=== PATIENT | male | born 1965 | race Caucasian/White ===

== ENCOUNTER 2020-07-29 10:56 | Inpatient (IN) | payer MEDICAID, SELFPAY ==
[~2020-07-29] VITALS: Ht 172.7 cm; Wt 77.1 kg
[2020-07-29 11:01] VITALS: BP 180/112
--- NOTE | 2020-07-29 11:14 | NUR ---
55YO M BIBA FROM HOME C/O SOB UPON EXERTION X 4 DAYS. DENIES FEVER AND COUGH. ENTIRE HOUSEHOLD COVID +. PT TESTED NEGATIVE FOR COVID 3 MONTHS AGO, NO TEST DONE AFTER. PER [facility], PT DESATURATING @ 88% ON RA EN ROUTE TO ED. PT GIVEN BREATHING TREATMENT AND PLACED ON 02 4L VIA NC, SATURATED @ 96%. IN ED, PT A0X4. PT TACHYCARDIC @ 112, TACHYPNEIC @ 24, 02 SAT 97% ON 4L 02 NC. PT WITH COARSE BREATH SOUNDS ON ALL LUNG SALMON. PT SITTING UPRIGHT ON BED. ERMD MADE AWARE OF PT STATUS. PMH: ASTHMA NKA
--- NOTE | 2020-07-29 12:02 | NUR ---
Daughter Lia [phone] Angélica [phone]
[2020-07-29 12:23] LABS: BASOPHILS % (AUTO) 0.4 % (0.0-2.0); EOSINOPHILS % (AUTO) 0.1 % (0.0-4.0); HEMATOCRIT 44.1 % (36-52); HEMOGLOBIN 15.3 g/dL (12.0-18.0); LYMPHOCYTES # (AUTO) 0.8 K/uL (2.0-11.5); LYMPHOCYTES % (AUTO) 10.3 % (20.5-51.1); MEAN CORPUSCULAR HEMOGLOBIN 32 pg (27-31); MEAN CORPUSCULAR HGB CONC 35 g/dL (33-37); MEAN CORPUSCULAR VOLUME 91.9 fL (80-94); MONOCYTES # (AUTO) 0.8 K/uL (0.8-1.0); MONOCYTES % (AUTO) 10.3 % (1.7-9.3); NEUTROPHILS % (AUTO) 78.9 % (42.2-75.2); PLATELET COUNT (AUTO) 369 K/uL (140-450); RED CELL DISTRIBUTION WIDTH 13.7 % (11.6-13.7); WHITE BLOOD COUNT (AUTO) 7.6 K/uL (4.8-10.8)
[2020-07-29 12:30] LABS: ANION GAP 14.6 (8-16); CARBON DIOXIDE 26.4 mmol/L (21-32); CREATININE 0.8 mg/dL (0.6-1.3)
--- NOTE | 2020-07-29 13:14 | NUR ---
TATIANNA SWAB DONE. WALKED TO LAB.
[2020-07-29 13:41] LABS: ALBUMIN 2.8 g/dL (3.4-5.0); BILIRUBIN,DIRECT 0.3 mg/dL (0.0-0.3); TOTAL BILIRUBIN 0.8 mg/dL (0.0-1.0)
[2020-07-29] MEDS ORDERED: DEXAMETHASONE 4 MG/ML VIAL IVP ONE (15:55)
[2020-07-29] MEDS ORDERED: HYDROcodone/APAP 7.5/325 MG 1 TAB PO PRN (16:35)
[2020-07-29] MEDS ORDERED: ZOLPIDEM 5 MG TAB PO PRN (16:35)
[2020-07-29] MEDS: NACL 0.9% 1,000 ML IV SCH (16:35)
[2020-07-29] MEDS ORDERED: guaiFENesin DM 200/20 MG-10 ML 10 ML UDC PO PRN (16:35)
[2020-07-29] MEDS ORDERED: ACETAMINOPHEN 325 MG TAB PO PRN (16:35)
[2020-07-29] MEDS ORDERED: ONDANSETRON 4 MG/2 ML VIAL IM/IVP PRN (16:35)
[2020-07-29] MEDS ORDERED: DOCUSATE SODIUM 100 MG GELCAP PO PRN (16:35)
[2020-07-29] MEDS ORDERED: ALBUTEROL HFA MDI 90 MCG/ACTUATION 8 GM INH PRN (16:55)
[2020-07-29 17:21] LABS: PROTHROMBIN TIME 10.4 secs (10.8-13.4)
[2020-07-29] MEDS ORDERED: cefTRIAXone 1,000 MG VIAL ONE (17:33)
[2020-07-29 17:37] LABS: CHOL/HDL RATIO 8.8 (1-4.5); FREE T4 (FREE THYROXINE) 1.39 ng/dL (0.76-1.46); MAGNESIUM 2.4 mg/dL (1.8-2.4); PHOSPHORUS 3.2 mg/dL (2.5-4.9); THYROID STIMULATING HORMONE 2.15 uIU/mL (0.34-3.74)
--- NOTE | 2020-07-29 18:12 | NUR ---
MRSA SWAB DONE. GIVEN TO CALIN FROM LAB.
--- NOTE | 2020-07-29 19:30 | NUR ---
RECEIVED REPORT FROM SHANNA ESPARZA FOR CONTINUITY OF CARE.
--- NOTE | 2020-07-29 19:37 | NUR ---
REPORT GIVEN TO ISAIAS JUAREZ. ALL CARES TRANSFERRED AT THIS TIME.
--- NOTE | 2020-07-29 20:00 | NUR ---
PT LAYING IN NO ACUTE DISTRESS NOTED. IVF RUNNING AT THIS TIME AT 60 ML/HR. PT IS ON 4L OF OXYGEN VIA NC O2 SAT AT 96%. NOTED WITH 18G IV SITE ON LAC. ON CARDIAC MONITORING, PULSE OXIMETRY AND BP MONITORING.
--- NOTE | 2020-07-29 20:20 | NUR ---
Patient will be admitted to care of DR. LOPEZ. Admited to TELEMETRY. Will go to room 111A. Belongings list completed. Report to GIVEN TO DIAZ RN.
[2020-07-29 20:54] LABS: APPEARANCE,URINE CLEAR (CLEAR); BILIRUBIN,URINE 2+ (NEGATIVE); BLOOD, URINE NEGATIVE (NEGATIVE); COLOR,URINE YELLOW (YELLOW); LEUKOCYTE ESTERASE ,URINE NEGATIVE (NEGATIVE); NITRITE, URINE NEGATIVE (NEGATIVE); UGLUCOSE NEGATIVE (NEGATIVE)
[2020-07-29 21:08] LABS: BARBITURATE, URINE NEGATIVE ng/ml (NEG <=200); BENZODIAZEPINE, URINE NEGATIVE ng/mL (NEG <=200); CANNABINOID, URINE NEGATIVE ng/mL (NEG <=50); COCAINE, URINE NEGATIVE ng/mL (NEG <=300); OPIATE, URINE NEGATIVE ng/mL (NEG <=2000); PHENCYCLIDINE SCREEN,URINE NEGATIVE ng/mL (NEG <=25)
[2020-07-29] MEDS: POTASSIUM CHLORIDE 10 MEQ TABER PO PRN (21:14)
[2020-07-29 21:30] VITALS: BP 146/97
--- NOTE | 2020-07-29 21:40 | NUR ---
ADMITTED 55Y.O.M FROM ER.PLACED ON BED.ORIENTED TO ROOM.CALL SYSTEM EXPLAINED AND IN REACH.LUNGS DIMINISHED.RESP.UNLABORED W/O2 AT 5L/NC.TELE APPLIED AND SHOWING SR.IVF OF NS INFUSING WELL VIA IV LINE IN LT AC W/#18 G W/O REDNESS OR EDEMA AT SITE.CARE PLAN DISCUSSED W/PT.HE VERBALIZED UNDERSTANDING.DENIED ANY PAIN OR DISCOMFORT AT TIME OF ADMISSION.WILL CONTINUE MONITORING.
[2020-07-30] VITALS: BP 149/98
--- NOTE | 2020-07-30 01:42 | NUR ---
1ST DOSE OH HEPARIN SUB.Q GIVEN.K=3.0,K-DUR 40 MEQ PO GIVEN.NO DISTRESS NOTED NOW.HR IS SR.
[2020-07-30] MEDS ORDERED: FLU VACCINE QS2020-21 0.5 ML SYR IMVAC PRN (02:45)
[2020-07-30 04:00] VITALS: BP 158/108
--- NOTE | 2020-07-30 05:00 | NUR ---
EQ=301/108.SENT MESSAGE FOR .SHE ANSWERED SHE WILL TELL TO ORDER SOMETHING FOR PT.RESP.UNLABORED W/O2.NO C/O PAIN OR DISCOMFORT.
[2020-07-30] MEDS: NACL 0.9% 1,000 ML IV SCH (06:30)
--- NOTE | 2020-07-30 06:55 | NUR ---
SLEPT WELL.NO DISTRESS NOTED.IVF INFUSING BY GRAVITY WELL
[2020-07-30 07:04] LABS: BASOPHILS % (AUTO) 0.3 % (0.0-2.0); EOSINOPHILS % (AUTO) 0.1 % (0.0-4.0); HEMATOCRIT 42.6 % (36-52); HEMOGLOBIN 14.5 g/dL (12.0-18.0); LYMPHOCYTES # (AUTO) 0.7 K/uL (2.0-11.5); MEAN CORPUSCULAR HEMOGLOBIN 32 pg (27-31); MEAN CORPUSCULAR HGB CONC 34 g/dL (33-37); MEAN CORPUSCULAR VOLUME 93.5 fL (80-94); MONOCYTES # (AUTO) 0.5 K/uL (0.8-1.0); MONOCYTES % (AUTO) 9.7 % (1.7-9.3); NEUTROPHILS # (AUTO) 3.9 K/uL (1.8-7.7); NEUTROPHILS % (AUTO) 75.9 % (42.2-75.2); PLATELET COUNT (AUTO) 369 K/uL (140-450); RED BLOOD CELL COUNT(AUTO) 4.55 MIL/uL (4.20-6.10); RED CELL DISTRIBUTION WIDTH 13.6 % (11.6-13.7); WHITE BLOOD COUNT (AUTO) 5.2 K/uL (4.8-10.8)
--- NOTE | 2020-07-30 07:30 | NUR ---
RECEIVED PT AWAKE, NO SOB NOTED. NO C/O PAIN AT THIS TIME. WILL CONTINUE TO MONITOR.
[2020-07-30 07:38] LABS: ANION GAP 13.9 (8-16); CREATININE 0.7 mg/dL (0.6-1.3); POTASSIUM 3.9 mmol/L (3.5-5.1)
[2020-07-30 08:00] VITALS: BP 139/112
[2020-07-30] MEDS ORDERED: remdesivir COMMUNICATION ORDER 1 EA MISC MC PRN (08:30)
[2020-07-30] MEDS: AZITHROMYCIN 250 MG TAB PO SCH (08:43)
[2020-07-30] MEDS: ASCORBIC ACID 500 MG TAB PO SCH (08:43)
[2020-07-30] MEDS: ZINC SULF 220 MG CAP PO SCH (08:44)
[2020-07-30] MEDS: PANTOPRAZOLE 40 MG TABEC PO SCH (08:44)
[2020-07-30] MEDS: lisinopriL 10 MG TAB PO SCH (08:50)
--- NOTE | 2020-07-30 08:50 | NUR ---
PATIENT HAS BEEN SCREENED AND CATEGORIZED MODERATE NUTRITION RISK. PATIENT WILL BE SEEN WITHIN 3-5 DAYS OF ADMISSION. 08/01/20 08/03/[address]
[2020-07-30] MEDS ORDERED: remdesivir CLINICAL MONITORING 1 EA MISC MC PRN (09:40)
[2020-07-30] MEDS ORDERED: REMDESIVIR (EUA) 200 MG in NACL 0.9% 100 ML IV SCH (12:00)
--- NOTE | 2020-07-30 12:59 | NUR ---
SOCIAL WORK NOTE: ERLINDA WAS UNABLE TO MEET PATIENT AT BEDSIDE. ERLINDA CONTACTED RN TO REQUEST ADDITIONAL CONTACT INFORMATION FOR EMERGENCY CONTACTS. ERLINDA WILL FOLLOW UP. Addendum: 07/30/20 at 1314 by Tiago Cardona SS ERLINDA WAS GIVEN PHONE NUMBER TO [facility] [phone]. ERLINDA LEFT . ERLINDA WILL FOLLOW UP TO COMPLETE ASSESSMENT.
[2020-07-30 13:00] VITALS: BP 157/100
--- NOTE | 2020-07-30 13:05 | NUR ---
PT RESTING. NO SIB NOTED. NO COMPLAINTS MADE. ENDORSED CARE TO JOVANI-RN IN STABLE CONDITION.
--- NOTE | 2020-07-30 13:05 | NUR ---
RECEIVED REPORT FROM NURSE FOR CONTINUITY OF CARE, PT HAS LAC 22G INFUSING NS AT 60 ML/H, PT ON 4L NC. WILL CONTINUE TO MONITOR.
--- NOTE | 2020-07-30 15:00 | NUR ---
ROUNDING ON PT, PT IS STABLE, WILL CONTINUE TO MONITOR.
[2020-07-30 16:00] VITALS: BP 157/102
--- NOTE | 2020-07-30 17:41 | NUR ---
ADMINISTERED SCHEDULED MEDICATION, MEDICATION EDUCATION PROVIDED. PT TOLERATED WELL. PT IS STABLE, WILL CONTINUE TO MONITOR.
--- NOTE | 2020-07-30 19:20 | NUR ---
RECEIVED BEDSIDE REPORT FROM DAY SHIFT NURSE. PATIENT IS AWAKE, ALERT, AND ORIENTED. RESPIRATIONS IS EVEN AND UNLABORED. PATIENT IS ON 4 L NC. SKIN IS INTACT, WARM, AND DRY. IV LAC 18 G PATENT AND INTACT. PLAN OF CARE WAS DISCUSSED. SAFETY PROTOCOLS IN PLACE. BED IS IN LOW POSITION AND CALL LIGHTS WITHIN REACH. WILL CONTINUE TO MONITOR.
--- NOTE | 2020-07-30 19:25 | NUR ---
ENDORSE PT TO NIGHT NURSE FOR CONTINUITY OF CARE, PT IS STABLE
[2020-07-30 20:00] VITALS: BP 157/98
--- NOTE | 2020-07-30 20:16 | NUR ---
ALL SCHEDULED MEDS GIVEN. PT IS STABLE. NO SIGNS OF DISTRESS NOTED. WILL CONTINUE TO MONITOR.
--- NOTE | 2020-07-30 23:59 | NUR ---
CHECK ON PATIENT. PATIENT IS STABLE. RESPIRATION EVEN AND UNLABORED. ON 4L NC SATING AT 96%. NO DISTRESS NOTED WILL CONTINUE TO MONITOR.
[2020-07-31] VITALS: BP 159/95
--- NOTE | 2020-07-31 01:00 | NUR ---
CHECK ON PATIENT. PATIENT IS ASLEEP. RESPIRATIONS EVEN AND UNLABORED. NO DISTRESS NOTED. WILL CONTINUE TO MONITOR.
[2020-07-31] MEDS: NACL 0.9% 1,000 ML IV SCH ×2 (01:55→17:12)
--- NOTE | 2020-07-31 03:00 | NUR ---
CHECK ON PATIENT. PATIENT IS STABLE. NO DISTRESS NOTED. WILL CONTINUE TO MONITOR
[2020-07-31 04:00] VITALS: BP 156/100
--- NOTE | 2020-07-31 05:07 | NUR ---
CHECK ON PATIENT. PATIENT IS ASLEEP. RESPIRATIONS EVEN AND UNLABORED. ON 4L NC. NO DISTRESS NOTED. WILL CONTINUE TO MONITOR.
--- NOTE | 2020-07-31 07:34 | NUR ---
ENDORSE PT TO DAY SHIFT NURSE FOR CONTINUITY OF CARE. PT IS STABLE
[2020-07-31 08:00] VITALS: BP 147/93
[2020-07-31] MEDS: lisinopriL 10 MG TAB PO SCH (08:08)
[2020-07-31] MEDS: PANTOPRAZOLE 40 MG TABEC PO SCH (08:08)
[2020-07-31] MEDS: ZINC SULF 220 MG CAP PO SCH (08:08)
[2020-07-31] MEDS: ASCORBIC ACID 500 MG TAB PO SCH (08:08)
[2020-07-31] MEDS: AZITHROMYCIN 250 MG TAB PO SCH (08:08)
[2020-07-31 08:14] LABS: T4 (THYROXINE) 8.6 ug/dL (4.5-12.0)
--- NOTE | 2020-07-31 08:15 | NUR ---
ALL SCHEDULED MEDS WERE GIVEN PER ORDER. NO ASE NOTED. WILL CONTINUE TO MONITOR
--- NOTE | 2020-07-31 08:20 | NUR ---
PROVIDED PATIENT BREAKFAST
[2020-07-31 09:33] LABS: BASOPHILS # (AUTO) 0.1 K/uL (0.00-0.22); EOSINOPHILS % (AUTO) 0.1 % (0.0-4.0); HEMOGLOBIN 13.6 g/dL (12.0-18.0); LYMPHOCYTES # (AUTO) 1.5 K/uL (2.0-11.5); NEUTROPHILS % (AUTO) 74.9 % (42.2-75.2)
[2020-07-31 09:48] LABS: BASOPHILS % (AUTO) 0.7 % (0.0-2.0); HEMATOCRIT 40.2 % (36-52); LYMPHOCYTES % (AUTO) 14.4 % (20.5-51.1); MEAN CORPUSCULAR HEMOGLOBIN 32 pg (27-31); MEAN CORPUSCULAR HGB CONC 34 g/dL (33-37); MONOCYTES % (AUTO) 9.9 % (1.7-9.3); NEUTROPHILS # (AUTO) 7.6 K/uL (1.8-7.7); PLATELET COUNT (AUTO) 381 K/uL (140-450); RED BLOOD CELL COUNT(AUTO) 4.27 MIL/uL (4.20-6.10); RED CELL DISTRIBUTION WIDTH 13.6 % (11.6-13.7); WHITE BLOOD COUNT (AUTO) 10.2 K/uL (4.8-10.8)
--- NOTE | 2020-07-31 10:42 | NUR ---
CHECKED ON PATIENT. PATIENT LAYING BED AWAKE. RESPIRATION EVEN UNLABORED ON 4L NC O2. NO DISTRESS NOTED. WILL CONTINUE TO MONITOR.
--- NOTE | 2020-07-31 10:55 | NUR ---
ENDORSED PATIENT TO LUCIAN FOR CONTINUITY OF CARE.
[2020-07-31 12:00] VITALS: BP 135/93
--- NOTE | 2020-07-31 12:00 | NUR ---
RECEIVED REPORT FROM ISAIAS GONSALES FOR CONTINUITY OF CARE.
[2020-07-31] MEDS: REMDESIVIR (EUA) 100 MG in NACL 0.9% 100 ML IV SCH (12:37)
--- NOTE | 2020-07-31 13:01 | NUR ---
RECEIVED REPORT FROM LUCIAN FOR CONTINUITY OF CARE. PATIENT RESTING IN BED IN SITTING POSITION. RESPIRATORY EVEN AND UNLABORED WITH 2L OXYGEN VIA NC. DENIES PAIN OR DISCOMFORT. NO ACUTE DISTRESS NOTED. SAFETY MEASURES IN PLACE, CALL LIGHT WITHIN REACH. WILL CONTINUE TO MONITOR.
--- NOTE | 2020-07-31 14:50 | NUR ---
PATIENT RESTING IN BED, WITH NO ACUTE DISTRESS NOTED. PATIENT TOLERATED THE 2L OXYGEN VIA NC WELL. SAFETY MEASURES IN PLACE, WILL CONTINUE TO MONITOR.
--- NOTE | 2020-07-31 15:20 | NUR ---
INFORMED DR. ALVAREZ THAT PATIENT'S BP LEVEL 170/103. NEW ORDER OBTAINED. WILL FOLLOW AND CARRY OUT.
[2020-07-31] MEDS: METOPROLOL 25 MG TAB PO SCH ×2 (15:41→20:26)
--- NOTE | 2020-07-31 15:41 | NUR ---
METOPROLOL GIVEN FOR BP 730/103, HR 80. EDUCATION PROVIDED. VERBALIZED UNDERSTANDING. SN CHANGED THE IV SITE DRESSING COVERED WITH TEGADERM. SECURE WITH TAPE. IV SITE DRY, NO S/S OF INFECTION NOTED. PATIENT'S FAMILY MEMBERS CAME TO CHECK ON HIM FROM OUTSIDE SEE THROUGH WINDOW. UPDATED PATIENT'S CONDITION, POSSIBLE DISCHARGE TOMORROW.
[2020-07-31] MEDS ORDERED: hydrALAZINE 10 MG TAB PO ONE (18:00)
--- NOTE | 2020-07-31 18:20 | NUR ---
ONE DOSE HYDRALAZINE 5MG GIVEN FOR BP LEVEL 170/100. EDUCATION PROVIDED REGARDING THE MEDICATION, INDICATION/SIDE EFFECT. PATIENT VERBALIZED UNDERSTANDING. SAFETY MEASURES IN PLACE. PATIENT STILL IN ROOM AIR, DENIES SOB OR TROUBLE BREATHING. WILL CONTINUE TO MONITOR.
--- NOTE | 2020-07-31 19:32 | NUR ---
ENDORSED PATIENT TO ACCORDION REPAIRER RN FOR CONTINUITY OF CARE. PATIENT IN STABLE CONDITION. NO SOB ON ROOM AIR. O2 SAT 92-95%.
--- NOTE | 2020-07-31 19:33 | NUR ---
RECEIVED REPORT FROM DAY SHIFT NURSE. PT IN BED RESTING. PT AAOX4, AMBULATORY, ABLE TO MAKE NEEDS KNOWN. RESPIRATIONS ARE EVEN AND UNLABORED TO ROOM AIR. PT NOT IN DISTRESS. DROPLET PRECAUTIONS OBSERVED. ABDOMEN IS SOFT AND NON-TENDER, ACTIVE BOWEL SOUNDS NOTED. SKIN IS WARM, DRY, AND INTACT. PT WITH IV ACCESS ON LEFT HAND G22 PATENT AND INTACT, IVF INFUSING WELL. PT DENIES ANY PAIN OR DISCOMFORT AT THIS TIME. NO REQUESTS MADE. PT KEPT COMFORTABLE. SAFETY MEASURES IN PLACE. CALL LIGHT WITHIN REACH. WILL CONTINUE TO MONITOR.
[2020-07-31 20:00] VITALS: BP 171/80
--- NOTE | 2020-07-31 20:27 | NUR ---
VS TAKEN. BP 171/80. SCHEDULED ANTI HYPERTENSIVE MEDICATION GIVEN. PT NOT IN DISTRESS. DENIES ANY PAIN OR DISCOMFORT. NO REQUESTS MADE. PT KEPT COMFORTABLE. CALL LIGHT WITHIN REACH. WILL CONTINUE TO MONITOR.
--- NOTE | 2020-07-31 22:04 | NUR ---
ROUNDS MADE. PT ASLEEP. PT NOT IN DISTRESS. VISIBLE CHEST RISE AND FALL NOTED. NO S/SX OF PAIN OR DISCOMFORT NOTED. PT KEPT COMFORTABLE. SAFETY MEASURES IN PLACE. CALL LIGHT WITHIN REACH. WILL CONTINUE TO MONITOR.
--- NOTE | 2020-08-01 00:21 | NUR ---
BP 171/100 HR 73. PT DENIES ANY DISCOMFORT OR DISTRESS. MD MADE AWARE. RECEIVED ORDER OF HYDRALAZINE 10MG IVP ONCE. AWAITING MEDICATION VERIFICATION. WILL CONTINUE TO MONITOR.
[2020-08-01] MEDS ORDERED: hydrALAZINE 20 MG/ML VIAL IVP PRN (00:40)
--- NOTE | 2020-08-01 01:56 | NUR ---
VS REASSESSMENT: BP 160/90 HR 95 RR 18 TEMP 97.3 O2 SAT 94%. WILL CONTINUE TO MONITOR.
[2020-08-01 04:00] VITALS: BP 151/93
--- NOTE | 2020-08-01 04:15 | NUR ---
VS STABLE. PT NOT IN DISTRESS. DENIES ANY PAIN OR DISCOMFORT. NO REQUESTS MADE. PT KEPT COMFORTABLE. SAFETY MEASURES IN PLACE. CALL LIGHT WITHIN REACH. WILL CONTINUE TO MONITOR.
[2020-08-01 07:10] LABS: ANION GAP 13.8 (8-16); CARBON DIOXIDE 22.6 mmol/L (21-32); CREATININE 0.8 mg/dL (0.6-1.3); POTASSIUM 4.4 mmol/L (3.5-5.1)
--- NOTE | 2020-08-01 07:25 | NUR ---
ENDORSED TO DAY SHIFT NURSE FOR CONTINUITY OF CARE
--- NOTE | 2020-08-01 07:45 | NUR ---
LAB CALLED FOR CRITICAL GLUCOSE 46 YESTERDAY RESULT AT 1730. NO ACTION AT THIS TIME DUE TO RESULTS BEING YESTERDAY. WILL CONTINUE TO MONITOR.
[2020-08-01 08:00] VITALS: BP 156/95
[2020-08-01] MEDS ORDERED: ZINC220C28 PO (09:24)
[2020-08-01] MEDS ORDERED: METO25TA PO (09:24)
[2020-08-01] MEDS ORDERED: DEXA6TAB1 PO (09:24)
[2020-08-01] MEDS ORDERED: LISI10TA11 PO (09:24)
[2020-08-01] MEDS ORDERED: ASPI-1884 PO (09:24)
[2020-08-01] MEDS ORDERED: AZIT250T11 PO (09:24)
[2020-08-01] MEDS ORDERED: VITC500 PO (09:24)
[2020-08-01 09:35] LABS: BASOPHILS # (AUTO) 0.1 K/uL (0.00-0.22); BASOPHILS % (AUTO) 0.5 % (0.0-2.0); EOSINOPHILS % (AUTO) 0.2 % (0.0-4.0); HEMOGLOBIN 14.2 g/dL (12.0-18.0); LYMPHOCYTES # (AUTO) 2.2 K/uL (2.0-11.5); LYMPHOCYTES % (AUTO) 16.7 % (20.5-51.1); MEAN CORPUSCULAR HEMOGLOBIN 32 pg (27-31); MEAN CORPUSCULAR HGB CONC 34 g/dL (33-37); MEAN CORPUSCULAR VOLUME 93.5 fL (80-94); MONOCYTES # (AUTO) 1.2 K/uL (0.8-1.0); MONOCYTES % (AUTO) 9.3 % (1.7-9.3); NEUTROPHILS # (AUTO) 9.8 K/uL (1.8-7.7); NEUTROPHILS % (AUTO) 73.3 % (42.2-75.2); PLATELET COUNT (AUTO) 429 K/uL (140-450); RED BLOOD CELL COUNT(AUTO) 4.49 MIL/uL (4.20-6.10); RED CELL DISTRIBUTION WIDTH 13.5 % (11.6-13.7); WHITE BLOOD COUNT (AUTO) 13.4 K/uL (4.8-10.8)
[2020-08-01] MEDS: lisinopriL 10 MG TAB PO SCH (09:37)
[2020-08-01] MEDS: PANTOPRAZOLE 40 MG TABEC PO SCH (09:38)
[2020-08-01] MEDS: METOPROLOL 25 MG TAB PO SCH (09:38)
[2020-08-01] MEDS: ASCORBIC ACID 500 MG TAB PO SCH (09:38)
[2020-08-01] MEDS: AZITHROMYCIN 250 MG TAB PO SCH (09:38)
--- NOTE | 2020-08-01 09:38 | NUR ---
SCHEDULED MEDICATIONS DUE GIVEN. WILL CONTINUE TO MONITOR.
[2020-08-01 10:04] LABS: ALBUMIN 2.5 g/dL (3.4-5.0); ANION GAP 13.8 (8-16); CARBON DIOXIDE 25.5 mmol/L (21-32); CREATININE 0.7 mg/dL (0.6-1.3); POTASSIUM 3.3 mmol/L (3.5-5.1); TOTAL BILIRUBIN 0.4 mg/dL (0.0-1.0)
[2020-08-01] MEDS: NACL 0.9% 1,000 ML IV SCH (11:15)
[2020-08-01] MEDS: POTASSIUM CHLORIDE 10 MEQ TABER PO PRN (11:15)
[2020-08-01] MEDS: ZINC SULF 220 MG CAP PO SCH (11:15)
--- NOTE | 2020-08-01 11:15 | NUR ---
SCHEDULED MEDICATIONS DUE GIVEN.
[2020-08-01] MEDS: REMDESIVIR (EUA) 100 MG in NACL 0.9% 100 ML IV SCH (12:24)
--- NOTE | 2020-08-01 14:15 | NUR ---
DISCHARGE INSTRUCTIONS PROVIDED TO PATIENT IN PREFERRED LANGUAGE OF PANAMANIAN. INSTRUCTIONS ON FOLLOW-UP WITH PCP, NEW MEDICATION REGIMEN AND SIDE EFFECTS, DIET REGIMEN, AND COVID PRECAUTIONS PER CDC GUIDELINES PROVIDED TO PATIENT. ANSWERED ALL OF PATIENT'S QUESTIONS REGARDING DISCHARGE. PATIENT VERBALIZED COMPLETE UNDERSTANDING. FLU VACCINE GIVEN TO PATIENT. PATIENT'S FAMILY MEMBER AT LOBBY. ESCORTED PATIENT DOWN TO LOBBY VIA WHEELCHAIR. PATIENT DISCHARGED AT THIS TIME IN STABLE CONDITION TO HOME IN PRIVATE VEHICLE.
== END 2020-08-01 14:10 | disposition home or self-care (01) | DRG 720 ==
LOC: MED 10:56 → MTU 17:58
PROVIDERS: ADMIT Family Medicine; ATTEND Family Medicine
PROC: XW033E5 Introduction of Remdesivir Anti-infective into Peripheral Vein, Percutaneous Approach, New Technology Group 5 (ICD-10-PCS; principal; 2020-08-01)
DX: A41.9 Sepsis, unspecified organism (principal); U07.1 COVID-19; J96.01 Acute respiratory failure with hypoxia; E43 Unspecified severe protein-calorie malnutrition; Z68.25 Body mass index [BMI] 25.0-25.9, adult; Z87.891 Personal history of nicotine dependence; E87.6 Hypokalemia; G93.41 Metabolic encephalopathy; J12.89 Other viral pneumonia; R74.01 Elevation of levels of liver transaminase levels; I10 Essential (primary) hypertension; E78.2 Mixed hyperlipidemia; E86.0 Dehydration
CPT/HCPCS: 36415; 71045; 80048; 80053; 80076; 80305; 81003; 82150; 83036; 83615; 83690; 83735; 83880; 84100; 84436; 84439; 84443; 84479; 84484; 85025; 85379; 85610; 85651; 85730; 86140; 86886; 86900; 86901; 87081; 93005; 96374; 99285; J0360; J0696; J1100; J1644; J7060; U0003